=== PATIENT | male | born 1975 | race Caucasian/White ===

== ENCOUNTER 2021-08-29 18:22 | Emergency (ER) | payer MEDICAID ==
[~2021-08-29] VITALS: Ht 175.3 cm; Wt 105.7 kg
[2021-08-29 18:28] VITALS: BP_SYST 173
--- NOTE | 2021-08-29 18:30 | NUR ---
Patient triaged and placed in waiting room. VSS and patient appears in no acute distress at this time. Accompanied by self , awaiting available bed, and MD notified of need for MSE.
[2021-08-29 19:38] LABS: BILIRUBIN,URINE NEGATIVE (NEGATIVE); BLOOD, URINE NEGATIVE (NEGATIVE); CLARITY/URINE CLEAR (CLEAR); COLOR,URINE YELLOW (YELLOW); GLUCOSE,URINE 3+ (NEGATIVE); KETONES,URINE 1+ (NEGATIVE); LEUKOCYTE ESTERASE ,URINE NEGATIVE (NEGATIVE); NITRITE, URINE NEGATIVE (NEGATIVE); PH,URINE 7.5 (5.0-8.0); PROTEIN URINE NEGATIVE (NEGATIVE); UROBILINOGEN,URINE 0.2 (0.2-1.0)
[2021-08-29 20:04] LABS: CALCIUM 9.2 mg/dL (8.4-11.0); CREATININE 1.07 mg/dL (0.55-1.30); POTASSIUM 4.2 mmol/L (3.5-5.1)
[2021-08-29 20:11] LABS: ALBUMIN 4.1 g/dL (3.4-4.8); TOTAL BILIRUBIN 0.8 mg/dL (0.0-1.0)
[2021-08-29 20:23] LABS: BASOPHILS % (AUTO) 0.2 % (0.0-2.0); EOSINOPHILS % (AUTO) 0.2 % (0.0-4.0); HEMATOCRIT 42.9 % (36-54); HEMOGLOBIN 14.3 g/dL (14.0-18.0); LYMPHOCYTES # (AUTO) 1.1 K/uL (1.0-5.5); MEAN CORPUSCULAR HEMOGLOBIN 26 pg (27-31); MEAN CORPUSCULAR HGB CONC 33 % (32-36); MEAN CORPUSCULAR VOLUME 77 fL (79.0-98.0); MONOCYTES # (AUTO) 0.4 K/uL (0.0-1.0); MONOCYTES % (AUTO) 6.9 % (1.7-9.3); NEUTROPHILS # (AUTO) 3.7 K/uL (1.8-7.7); NEUTROPHILS % (AUTO) 71.7 % (40.0-70.0); PLATELET COUNT (AUTO) 166 K/uL (130-430); RED BLOOD CELL COUNT(AUTO) 5.54 MIL/uL (4.2-6.2); WHITE BLOOD COUNT (AUTO) 5.2 K/uL (4.8-10.8)
[2021-08-29 20:56] LABS: BACTERIA,URINE RARE /HPF (None Seen); RBC,URINE 0-3 /HPF (0-3); WBC,URINE 0-3 /HPF (0-3)
--- NOTE | 2021-08-29 22:04 | NUR ---
ER IN TRIAGE examining patient.
[2021-08-29] MEDS ORDERED: METF-834 PO (22:11)
[2021-08-29] MEDS ORDERED: LISINOPRIL 10 MG TABLET (PRINIVIL) PO ONE (22:15)
[2021-08-29] MEDS ORDERED: LISI20TA30 PO (22:19)
--- NOTE | 2021-08-29 22:20 | NUR ---
MD Clinton at bedside
[2021-08-29] MEDS ORDERED: LISINOPRIL 10 MG TABLET (PRINIVIL) ONE (22:24)
--- NOTE | 2021-08-29 22:29 | NUR ---
patient medicated as ordered w/ 20mg of lisinopril po. will observe for any adverse reaction.
--- NOTE | 2021-08-29 23:05 | NUR ---
patient b/p noted at 157/102, no adverse reaction noted to medication. Patient given written and verbal discharge instructions and verbalizes understanding. ER MD discussed with patient the results and treatment provided. Patient in stable condition. ID arm band removed. Rx of lisinopril given. Patient educated on pain management and to follow up with PMD. Pain Scale 0. Opportunity for questions provided and answered. Medication side effect fact sheet provided.
--- NOTE | 2021-08-29 23:05 | NUR ---
Note caridad in ED - 08/29/21 at 2305 by [email or web address] patient b/p noted at 157/102, no adverse reaction noted to medication. dis
[2021-08-29 23:08] VITALS: BP_SYST 157
== END 2021-08-29 23:08 | disposition home or self-care (01) ==
LOC: SED 18:22
DX: E11.9 Type 2 diabetes mellitus without complications (principal); I10 Essential (primary) hypertension
CPT/HCPCS: 36415; 80053; 81000; 85025; 99283